=== PATIENT | male | born 1995 | race Caucasian/White ===

== ENCOUNTER 2016-06-08 09:43 | Emergency (ER) | payer OTHER ==
[~2016-06-08] VITALS: Ht 182.9 cm; Wt 78.9 kg
[~2016-06-08 09:43] MED LIST: HYDR-906 PO; IBUP-1542 PO; NO MEDS
[2016-06-08 09:51] VITALS: Ht 182.9 cm; Wt 78.9 kg
[2016-06-08] MEDS ORDERED: KETOROLAC 60 MG INJ IM STA (10:26)
--- NOTE | 2016-06-08 11:09 | RADRPT ---
PROCEDURE: XR Elbow. CLINICAL INDICATION: Trauma, pain, felt a pop TECHNIQUE: 4 views of the left elbow performed. COMPARISON: Radiographs of the left elbow May 14, 2016 FINDINGS: There is an obliquely oriented fracture of the distal humeral shaft with fairly extensive periosteal reaction and some decreased bone mineralization of the humerus with a somewhat moth-eaten appearanc e. Pathologic fracture is not excluded. There is no evidence of fracture of the elbow or significan t elbow joint effusion. IMPRESSION: 1. Minimally displaced obliquely oriented distal humeral shaft fracture as above. Given the exubera nt periosteal reaction and relatively rapid mottled appearance of the bone, cannot exclude pathologi c fracture related to underlying infection or bone lesion. Orthopedic consultation and clinical cor relation is advised. Consider MRI for further evaluation. Findings discussed with REZA RHOADES at 06/08/2016 11:06:35 AM RPTAT: UU .Grayson Gill MD, MD Date Time Electronically viewed and signed by .Grayson Gill MD, on 06/08/2016 11:08 .Ximena/
--- NOTE | 2016-06-08 11:15 | RADRPT ---
PROCEDURE: XR humerous CLINICAL INDICATION: Trauma, pain, felt a pop TECHNIQUE: 2 views of the left elbow performed. COMPARISON: Radiographs of the left elbow May 14, 2016 FINDINGS: There is an obliquely oriented fracture of the distal humeral shaft with fairly extensive periosteal reaction and some decreased bone mineralization of the humerus with a somewhat moth-eaten appearanc e. Pathologic fracture is not excluded. There is no evidence of fracture of the elbow or significan t elbow joint effusion. IMPRESSION: 1. Minimally displaced obliquely oriented distal humeral shaft fracture as above. Given the exubera nt periosteal reaction and relatively rapid mottled appearance of the bone, cannot exclude pathologi c fracture related to underlying infection or bone lesion. Orthopedic consultation and clinical cor relation is advised. Consider MRI for further evaluation. Findings discussed with REZA RHOADES at 06/08/2016 11:06:35 AM RPTAT: UU .Grayson Gill MD, MD Date Time Electronically viewed and signed by .Grayson Gill MD, on 06/08/2016 11:14 .K/
[2016-06-08] MEDS ORDERED: HYDROCODONE/APAP (10/325) TAB PO ONE (11:30)
[2016-06-08] MEDS ORDERED: HYDR-906 PO (12:21)
[2016-06-08] MEDS ORDERED: NAPR-688 PO (12:21)
--- NOTE | 2016-06-20 23:28 | ERD ---
DATE OF SERVICE: 06/08/2016 HISTORY OF PRESENT ILLNESS: This 20-year-old male comes in with his father for left upper arm pain x2 months. Arm pain was exacerbated yesterday when the patient was going over a fence and felt a po p in his arm. He had previously had a knee injury, where he went to the hospital and x-rays were ne gative for any acute fracture, and they said it was likely a ligament or tendon injury. The pain mahmood s increased since he attempted to climb the fence yesterday. He has no other injuries. He is other rosales healthy. REVIEW OF SYSTEMS: A 10-point review of systems negative except as in the HPI. PAST MEDICAL HISTORY: Negative. PAST SURGICAL HISTORY: Negative. FAMILY HISTORY: Noncontributory. No trauma. SOCIAL HISTORY: Does not drink alcohol. Does not use any other drugs currently. Does smoke cigare ttes. DIAGNOSTIC DATA: Humerus x-ray interpretation of the left humerus and left elbow x-ray interpretati on by myself: Midshaft humeral fracture, distal midshaft, with minimal displacement, but a moth-ea ten appearance of the bone, that was not present on prior x-ray. No dislocations. EMERGENCY DEPARTMENT COURSE AND MEDICAL DECISION MAKING: Humeral shaft fracture secondary to trauma . The patient was given [place], as well as Toradol in the emergency room, which helped with his pain . He will be given an orthopedic followup and placed in the splint for his humeral shaft fracture. As far as the moth-eaten appearance on the x-ray showing decreased bone mineralization compared to prior, I did remove a compressive PAVEL wrap to the patient, that was definitely too tight; causing mahmood nd swelling and forearm swelling. The patient unlikely has any new lytic cancer lesions in the last month that have preferentially attacked his left humerus. It is much more likely the patient has b een depriving the tissue of oxygen with the compressive PVAEL stressing. I told him not to use that a nymore unless he makes sure that it is not very tight, and the hand has good circulation. He had a splint application though. Patient's arm was fitted in splint, that the patient had already with hi m. I performed a neurovascular assessment after adjusting the splint for maximum comfort without co mpromising circulation. The patient was neurovascularly and motor intact. I spoke with the father and the patient regarding an orthopedist for orthopedic followup, lindy galeano the findings on his x-ray. They agreed that they will call find an orthopedist for him through [facility] primary care doctor as soon as possible. Discharging with naproxen and [place] for pain. DISCHARGE DIAGNOSES: 1. Closed fracture of the humeral shaft. 2. Bone demineralization. DISPOSITION: To home in stable condition. Dictated By: VERONA DASH Conf#: [id number] DID#: [id number]
== END 2016-06-08 12:50 | disposition home or self-care (01) ==
LOC: FTE 09:43
DX: S42.392A Other fracture of shaft of left humerus, initial encounter for closed fracture (principal); F17.210 Nicotine dependence, cigarettes, uncomplicated; M80.822A Other osteoporosis with current pathological fracture, left humerus, initial encounter for fracture; X50.9XXA Other and unspecified overexertion or strenuous movements or postures, initial encounter; Y92.9 Unspecified place or not applicable; Z79.4 Long term (current) use of insulin
CPT/HCPCS: 73060; 73080; 96372; J1885; Z7502; Z7610

== ENCOUNTER 2016-06-27 15:16 | Emergency (ER) | payer OTHER ==
[~2016-06-27] VITALS: Ht 182.9 cm; Wt 63.5 kg
[~2016-06-27 15:16] MED LIST changes: +NAPR-688 PO
[2016-06-27 15:19] VITALS: Ht 182.9 cm; Wt 63.5 kg
[2016-06-27] MEDS ORDERED: SODIUM CHLORIDE 0.9% 1L BAG IV* STA (16:46)
[2016-06-27] MEDS ORDERED: VANCOMYCIN 1 GM (PMX) 250 ML IVPB STA (16:46)
[2016-06-27] MEDS ORDERED: morphine 4 MG/ML VIAL IV STA ×2 (16:46→20:00)
[2016-06-27] MEDS ORDERED: PIPER-TAZO 3.375 GM IV (PMX) 100 ML IVPB STA (16:46)
[2016-06-27] MEDS ORDERED: CLINDAMYCIN 900 MG/D5W (PMX) 50 ML IVPB STA (16:46)
[2016-06-27] MEDS ORDERED: IBUP-1542 PO (17:03)
--- NOTE | 2016-06-27 17:29 | RADRPT ---
PROCEDURE: XR Humerus 2 Views. CLINICAL INDICATION: Left arm pain, possible osteomyelitis. TECHNIQUE: AP and lateral views of the left humerus were performed. COMPARISON: June 08, 2016 FINDINGS: Obliquely oriented fracture through the mid humeral diaphysis continues to be identified. There has been interval increase in the displacement and retraction of the distal fracture fragment. Scatter ed patchy lucencies, possibly reflecting erosions are identified fracture fragments adjacent to the fracture site. New soft tissue air is seen surrounding the fracture site. Interosseous spaces appe ar unremarkable. IMPRESSION: Continued mid humeral diaphysis fracture with interval increase in displacement and retraction of th e distal fracture fragment. Scattered patchy lucencies, possibly reflecting erosions in the fracture fragments, adjacent to the fracture site. Osteomyelitis is not excluded. If further characterization and evaluation for osteo myelitis is needed CT or MRI could be helpful. New soft tissue air adjacent to the fracture site. Finding could reflect soft tissue infection. RPTAT: AA .Crow Durán MD, MD Date Time Electronically viewed and signed by .Crow Durán MD, on 06/27/2016 17:28 .P/
--- NOTE | 2016-06-27 17:55 | ERA ---
ER Documentation Chief Complaint Date/Time DATE: 06/27/16 TIME: 17:16 Chief Complaint FEVER AND LEFT ARM SWELLING AND REDNESS WITH DRAINAGE LAST NIGHT HPI 20-year-old previously healthy male presenting with left arm pain and redness. He fractured his arm after a fall on June 08 while he was trying to jump over a fence. He felt a pop at that time.. He was seen here, diagnosed with humeral fracture and placed in a sling with instructions to follow-up with an orthopedic. Due to severe pain, he was taken to [facility] and referred to an orthopedist. He saw an orthopedist who referred him for an MRI yesterday. He had the MRI of his left arm which showed a displaced comminuted oblique fracture of the mid humeral diaphysis with a large amount of surrounding fluid and hemorrhage. Per the patient's mother, the orthopedist, Dr Pulido, had concern for possible associated tumor with the fracture and referred the patient to another oncologic orthopedist, Dr. Jacobs. They scheduled an appointment for this orthopedist for July 09. His current orthopedist saw him yesterday after the MRI. Per the patient, his arm was already swollen and red. Since last night he has had new drainage from the back of his arm with an associated "hole" in his arm. He has had associated chills. No nausea, vomiting, abdominal pain. He rates his pain as a 10 out of 10. He denies any associated numbness or tingling in his arm. ROS All systems reviewed and are negative except as per history of present illness. Medications Home Meds Active Scripts Hydrocodone/Acetaminophen ([place] 5-325 Tablet) 1 Each Tablet, 1 EACH PO Q6, #20 TAB Prov:VERONA COBB DO 06/08/16 Reported Medications Ibuprofen* (Ibuprofen*) 600 Mg Tablet, 600 MG PO Q6H Y for PAIN, TAB 06/27/16 Discontinued Reported Medications [No Meds] No Conflict Check 11/08/10 [No Meds] No Conflict Check 04/26/10 Discontinued Scripts Naproxen* (Naproxen*) 500 Mg Tablet, 500 MG PO BID, #20 TAB Prov:VERONA COBB DO 06/08/16 Hydrocodone/Acetaminophen ([place] 5-325 Tablet) 1 Each Tablet, 1 TAB PO Q6H Y for PAIN, #20 TAB Prov:CUISIA,JAMA VEGA [employer]. [employer] 05/14/16 Ibuprofen* (Motrin*) 600 Mg Tab, 600 MG PO Q6H Y for PAIN AND OR ELEVATED TEMP, #30 TAB Prov:JAMA LOYOLA [employer] 05/14/16 Allergies Allergies: Coded Allergies: No Known Drug Allergies (Verified Allergy, Mild, 06/27/16) PMhx/Soc History of Surgery: Yes (ALVIN INGUINAL HERNIA REPAIR) Anesthesia Reaction: No Hx Neurological Disorder: No Hx Respiratory Disorders: No Hx Cardiac Disorders: No Hx Psychiatric Problems: No Hx Miscellaneous Medical Probl: No Hx Alcohol Use: No Hx Substance Use: Yes (Marijuana, history of heroin IV use several months ago) Hx Tobacco Use: Yes (pack day x 5 years) FmHx Family History: No diabetes Physical Exam Vitals Vital Signs Date Time Temp Pulse Resp B/P Pulse Ox O2 Delivery O2 Flow Rate FiO2 06/27/16 18:47 98.5 104 20 107/76 Room Air 06/27/16 18:10 98.7 115 18 107/76 100 Room Air 06/27/16 15:19 101.0 145 22 109/71 98 Physical Exam Const: Ill-appearing, mild distress secondary to pain Head: Atraumatic Eyes: Normal Conjunctiva ENT: Normal External Ears, Nose and Mouth. Neck: Full range of motion..~ No meningismus. Resp: Clear to auscultation bilaterally Cardio: Regular rate and rhythm, no murmurs Abd: Soft, non tender, non distended. Normal bowel sounds Skin: Left arm with induration, swelling, erythema, warmth to touch up to level of mid humerus Back: No midline or flank tenderness Ext: Upper Extremity - bilateral: Skin: Draining abscess with purulent bloody drainage in the posterior upper left arm at the level of the mid humerus with associated 2 cm opening and surrounding fluctuance with induration Compartments: Soft, edema present, no crepitus to palpation Motor: Limited active range of motion shoulder/elbow/wrist /hand secondary to pain. Able to move all fingers Sensation: Decreased sensation in the left hand, normal sensation in the rest of the arm Bones: Tenderness palpation over the humerus distally, otherwise forearm, wrist, shoulder and hand nontender Snuffbox: Nontender Pulses/Perfusion: 2+ radial, Capillary refill < 2 seconds Neur: Awake and alert and oriented 3 Psych: Normal Mood and Affect Result Diagram: 06/27/16 1745 06/27/16 1646 Results 24 hrs Laboratory Tests Test 06/27/16 16:46 06/27/16 17:40 06/27/16 17:45 Alanine Aminotransferase (ALT/SGPT) 32IU/L Albumin 3.2g/dl Albumin/Globulin Ratio 0.80 Alkaline Phosphatase 148IU/L Anion Gap 19 Aspartate Amino Transf (AST/SGOT) 12IU/L Blood Urea Nitrogen 11mg/dl Calcium Level 9.6mg/dl Carbon Dioxide Level 25mmol/L Chloride Level 97mmol/L Creatinine 0.60mg/dl Direct Bilirubin 0.00mg/dl Globulin 4.00g/dl Glucose Level 104mg/dl Indirect Bilirubin 0.0mg/dl Potassium Level 4.0mmol/L Sodium Level 137mmol/L Total Bilirubin 0.0mg/dl Total Protein 7.2g/dl Lactic Acid Level 1.5mmol/L Activated Partial Thromboplast Time 35.5Sec Basophils # 0.110^3/ul Basophils % 0.5% Blood Morphology Comment Eosinophils # 0.210^3/ul Eosinophils % 0.8% Hematocrit 31.9% Hemoglobin 10.5g/dl INR International Normalized Ratio 1.28 Lymphocytes # 3.910^3/ul Lymphocytes % 18.4% Mean Corpuscular Hemoglobin 27.9pg Mean Corpuscular Hemoglobin Concent 32.9g/dl Mean Corpuscular Volume 84.7fl Mean Platelet Volume 7.6fl Monocytes # 1.710^3/ul Monocytes % 8.0% Neutrophils # 15.110^3/ul Neutrophils % 72.3% Nucleated Red Blood Cells # 0.010^3/ul Nucleated Red Blood Cells % 0.0/100WBC Platelet Count 17382^3/UL Prothrombin Time 16.1Sec Prothrombin Time Ratio 1.3 Red Blood Count 3.7610^6/ul Red Cell Distribution Width 15.8% White Blood Count 20.910^3/ul Current Medications Medications (Trade) Dose Ordered Sig/Taz Route PRN Reason Start Time Stop Time Status Last Admin Dose Admin Sodium Chloride 1970 ml 1,970 ml BOLUS OVER 2 HOURS STAT IV* 06/27/16 16:46 06/27/16 16:48 DC 06/27/16 17:59 Vancomycin HCl 250 ml @ 125 mls/hr ONCE STAT IVPB 06/27/16 16:46 06/27/16 18:45 DC 06/27/16 19:18 Clindamycin HCl/ Dextrose 50 ml @ 50 mls/hr ONCE STAT IVPB 06/27/16 16:46 06/27/16 17:45 DC 06/27/16 18:45 Piperacillin Sod/ Tazobactam Sod (Zosyn 3.375gm/ 100 ml (Pmx)) 100 ml @ 100 mls/hr ONCE STAT IVPB 06/27/16 16:46 06/27/16 17:45 DC 06/27/16 17:59 Morphine Sulfate (morphine) 4 mg ONCE STAT IV 06/27/16 16:46 06/27/16 16:48 DC 06/27/16 17:59 Procedures/MDM Patient is presenting with left upper extremity cellulitis with associated draining abscess with underlying nonhealing left midshaft comminuted humeral fracture. I have a low suspicion for necrotizing fasciitis however I have a concern for osteomyelitis. Blood cultures were sent. IV fluids and IV antibiotics were started. He was placed on IV vancomycin, clindamycin, and Zosyn. Patient's infectious symptoms have not stabilized and the patient is at risk of rapid decompensation. The patient will need admission for careful hydration, antibiotic therapy, and infectious source control. I suspect he is going to require surgery, however the orthopedic surgeons here do not feel comfortable doing surgery on this patient given he may have a underlying tumor. I spoke with the orthopedist on-call, Dr. Caba. He stated that any orthopedic general surgeon will not touch this patient given the concern for pathologic fracture and associated tumor. I called the patient's own orthopedist, , who stated that he referred the patient to a tumor specialist and did not feel comfortable doing surgery on this patient's arm. Given the fact that the patient now has an associated infection with his likely pathologic fracture, he recommended I transfer the patient to [facility] or [facility] for higher level of care where they have an oncologic orthopedic surgeon. I feel this patient may need surgical debridement due to his overlying infection and feel he would most benefit from transfer. 20:05 I called [facility] who going to contact with [facility]. The patient was accepted by Dr. Yuan for transfer to their ER. Patient is stable for transfer to [facility] for higher level of care. Departure Diagnosis: Primary Impression: Cellulitis of left upper extremity Additional Impressions: Comminuted left humeral fracture with nonunion Abscess of left upper extremity Condition: Serious ROB SIMS MD Jun 27, 2016 17:27
[2016-06-27 18:34] LABS: ALBUMIN 3.2 g/dl (3.3-4.9)
[2016-06-27 18:37] LABS: ALBUMIN/GLOBULIN RATIO 0.8; CREATININE 0.6 mg/dl (0.61-1.24); TOTAL PROTEIN 7.2 g/dl (6.1-8.1)
[2016-06-27 18:37] LABS: INR 1.28; PROTIME 16.1 Sec (12.2-14.2); PT RATIO 1.3
[2016-06-27 18:38] LABS: PARTIAL THROMBOPLASTIN TIME 35.5 Sec (25.0-35.0)
[2016-06-27 18:38] LABS: CALCIUM 9.6 mg/dl (8.4-10.2)
[2016-06-27 18:39] LABS: BASOPHIL # 0.1 10^3/ul (0.0-0.1); BASOPHILS % 0.5 % (0.0-2.0); EOSINOPHILS # 0.2 10^3/ul (0.0-0.5); EOSINOPHILS % 0.8 % (0.0-7.0); HEMATOCRIT 31.9 % (42.0-52.0); HEMOGLOBIN 10.5 g/dl (14.0-18.0); LYMPHOCYTES # 3.9 10^3/ul (0.8-2.9); LYMPHOCYTES % 18.4 % (18.0-55.0); MEAN CORPUSCULAR HEMOGLOBIN 27.9 pg (29.0-33.0); MEAN CORPUSCULAR HGB CONC 32.9 g/dl (32.0-37.0); MEAN CORPUSCULAR VOLUME 84.7 fl (72.0-104.0); MEAN PLATELET VOLUME 7.6 fl (7.4-10.4); MONOCYTE # 1.7 10^3/ul (0.3-0.9); NEUTROPHIL # 15.1 10^3/ul (1.6-7.5); NEUTROPHILS % 72.3 % (30.0-74.0); PLATELET COUNT 911 10^3/UL (140-440); RED BLOOD COUNT 3.76 10^6/ul (4.70-6.10); RED CELL DISTRIBUTION WIDTH 15.8 % (11.5-14.5); UNCORRECTED WBC 20.9 10^3/ul (4.8-10.8); WHITE BLOOD COUNT 20.9 10^3/ul (4.8-10.8)
[2016-06-27 18:43] LABS: CONDITION 1; LH ANALYZER COMMENTS 1
[2016-06-27 18:47] VITALS: BP 107/76; PULSE 104; RESP 20; TEMP 98.5
== END 2016-06-27 20:39 | disposition short-term general hospital (02) ==
LOC: E/R 15:16
DX: L03.114 Cellulitis of left upper limb (principal); S42.351K Displaced comminuted fracture of shaft of humerus, right arm, subsequent encounter for fracture with nonunion; L02.414 Cutaneous abscess of left upper limb; F17.210 Nicotine dependence, cigarettes, uncomplicated; X50.9XXD Other and unspecified overexertion or strenuous movements or postures, subsequent encounter
CPT/HCPCS: 73060; 80053; 83605; 85025; 85610; 85730; 86850; 86900; 86901; 87040; J2270; J2543; J3370; J7030; Z7610; 36415; 96374; 96375; 96376

== ENCOUNTER 2016-07-01 11:47 | Inpatient (IN) | payer OTHER ==
[~2016-07-01] VITALS: Ht 182.9 cm; Wt 61.4 kg
[~2016-07-01 11:47] MED LIST changes: -NAPR-688 PO; -NO MEDS
[2016-07-01 16:30] VITALS: BP 101/60; PULSE 97; RESP 20
[2016-07-01] MEDS ORDERED: HYDROCODONE/APAP (10/325) TAB PO PRN (18:00)
[2016-07-01] MEDS ORDERED: ONDANSETRON 4 MG INJ IV PRN (18:00)
[2016-07-01] MEDS ORDERED: DIPHENHYDRAMINE 25 MG CAP PO PRN (18:00)
[2016-07-01] MEDS ORDERED: DOCUSATE SODIUM 100 MG CAP PO PRN (18:00)
[2016-07-01] MEDS ORDERED: HYDROCODONE/APAP (5/325) TAB PO PRN (18:00)
[2016-07-01] MEDS ORDERED: HYDROmorphONE 1 MG/ML SYG IV PRN (18:00)
[2016-07-01] MEDS ORDERED: VANCOMYCIN IV PER PHARMACY XX SCH (18:00)
[2016-07-01] MEDS ORDERED: LACTATED RINGER'S 1,000 ML IV SCH (18:00)
--- NOTE | 2016-07-01 18:25 | CONS ---
Date/Time of Note Date/Time of Note DATE: 07/01/16 TIME: 18:25 Consultation Date/Type/Reason Admit Date/Time Jul 01, 2016 at 16:21 Initial Consult Date Exam/Review of Systems Vital Signs Vitals Vital Signs Date Time Temp Pulse Resp B/P Pulse Ox O2 Delivery O2 Flow Rate FiO2 07/01/16 16:30 98.4 97 20 101/60 94 Medications Medications Current Medications Lactated Ringer's (Lr) 1,000 ml @ 100 mls/hr Q10H IV ; Start 07/01/16 at 18:00 Diphenhydramine HCl (Benadryl) 25 mg HS PRN PO SLEEP; Start 07/01/16 at 18:00 Hydromorphone HCl (Dilaudid) 0.5 mg Q4H PRN IV PAIN; Start 07/01/16 at 18:00 Enoxaparin Sodium (Lovenox) 30 mg DAILY SC ; Start 07/02/16 at 09:00 Docusate Sodium (Colace) 100 mg BID PO ; Start 07/01/16 at 21:00 Ondansetron HCl (Zofran Inj) 4 mg Q8 PRN IV NAUSEA AND/OR VOMITING; Start at 18:00 Docusate Sodium (Colace) 50 mg BID PRN PO CONSTIPATION; Start 07/01/16 at 18:00 Acetaminophen/ Hydrocodone Bitart ([place] (10/325)) 1 tab Q6 PRN PO PAIN LEVEL 7 -10; Start 07/01/16 at 18:00 Acetaminophen/ Hydrocodone Bitart ([place] (5/325)) 1 tab Q6H PRN PO PAIN LEVEL 4 -6; Start 07/01/16 at 18:00 ROMMEL SEVERINO MD Jul 01, 2016 18:25
--- NOTE | 2016-07-01 18:25 | QN ---
Documentation Comment [id number] ROMMEL SEVERINO MD Jul 01, 2016 18:25
--- NOTE | 2016-07-01 18:48 | RADRPT ---
PROCEDURE: XR left shoulder. CLINICAL INDICATION: Pain TECHNIQUE: AP, Internal and external rotation views of the left shoulder were performed. COMPARISON: 06/27/2016 FINDINGS: There is partially visualized air in the subcutaneous soft tissues of the left mid arm. There are p atchy lucencies seen in the left proximal and mid humerus, suspicious for possible osteomyelitis. The previously seen humerus fracture is not included in the submitted images. RPTAT: AA IMPRESSION: Partially visualized air in the subcutaneous soft tissues of the left mid arm, suspicious for an abs cess. Ill-defined lucencies in the humerus are partially visualized, suspicious for osteomyelitis. Further evaluation with MRI is recommended. The previously seen humerus fracture is not included in the submitted images. .Vu Lazaro MD, MD Date Time Electronically viewed and signed by .Vu Lazaro MD, on 07/01/2016 18:48 .S/
--- NOTE | 2016-07-01 19:35 | HP ---
DATE OF ADMISSION: 07/01/2016 HISTORY OF PRESENT ILLNESS: The patient was transferred from [facility] with diagnosis of left humerus fracture. The patient has history of fall. The patient tried to jump over a concrete wall on the left, felt it pop and immediate pain in the left upper arm, was taken to [facility]. The patient was diagnosed with pathological fracture, shaft fracture, was , and the patient is being treated for left humeral shaft fracture with draining abscess. 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 The patient also noted to have fracture _ pathologic lesion of his left humerus with associated infection, abscess. The patient was transferred for further management here. The patient has left _ cavitary defect per current record. The patient will need antibiotic, pain control. The patient's WBC 20.7, hematocrit 32.1. Sodium 130, potassium 4.5 from the transferring hospital. The patient is denying any nausea, vomiting; complaining of pain. PAST MEDICAL HISTORY: IVDA; left upper extremity fracture; abscess, status post I and D on 06/29/2016. ALLERGY HISTORY: NEGATIVE. FAMILY HISTORY: Negative. SOCIAL HISTORY: Negative. MEDICATION HISTORY: The patient is currently on: 1. Lovenox. 2. Docusate sodium. 3. Lactated Ringer's. 4. Dilaudid. 5. Vancomycin. 6. Hydrocodone. REVIEW OF SYSTEMS HEENT: Unremarkable. RESPIRATORY: Unremarkable. CARDIOVASCULAR: Unremarkable. ABDOMEN: Unremarkable. EXTREMITIES: Unremarkable except as mentioned above. CENTRAL NERVOUS SYSTEM: Unremarkable. PHYSICAL EXAMINATION: GENERAL: The patient is awake, alert. VITAL SIGNS: Stable. HEAD: Atraumatic, normocephalic. EYES: Pupils equal, reactive to light. NECK: Supple. No JVD. LUNGS: Clear. CARDIOVASCULAR: S1, S2 normal. ABDOMEN: Soft, nontender. Bowel sounds present. No palpable mass. EXTREMITIES. The patient has no cyanosis, clubbing, edema. The patient's left arm has dressing on. No active discharge noted. LABORATORY: No laboratory data from this admission. IMPRESSION: 1. Left humerus fracture. 2. Abscess. 3. Status post incision and drainage. 4. Leukocytosis. 5. Anemia. 6. The patient has incomplete database. PLAN: Continue antibiotic. ID consultation, orthopedic consultation. X-ray will be repeated. Orders were done. Dictated By: ROMMEL MCGOVERN/MARILYNN Conf#: [id number] DID#: [id number] MTDD
[2016-07-01] MEDS ORDERED: VANCOMYCIN 1 GM in NS 250 ML IVPB SCH (20:00)
[2016-07-01] MEDS ORDERED: DOCUSATE SODIUM 100 MG CAP PO SCH (21:00)
[2016-07-01] MEDS ORDERED: VANCOMYCIN 1 GM in SOD CHLORIDE 0.9% 250 ML IVPB SCH (21:00)
[2016-07-02] MEDS ORDERED: ENOXAPARIN 30 MG/0.3 ML SYG SC SCH (09:00)
--- NOTE | 2016-07-03 21:11 | QN ---
Documentation Comment [id number] ROMMEL SEVERINO MD Jul 03, 2016 21:11
--- NOTE | 2016-07-04 07:45 | DS ---
DATE OF ADMISSION: 07/01/2016 DATE OF DISCHARGE: 07/01/2016 The patient has left arm abscess. The patient presented to this hospital. and left ama same time. Dictated By: ROMMEL SEVERINO MD BS/NTS Conf#: [id number] DID#: [id number] MTDD
== END 2016-07-01 19:18 | disposition left against medical advice (07) | DRG 540 ==
LOC: MS2 16:21
PROVIDERS: ADMIT Internal Medicine Nephrology; ATTEND Internal Medicine Nephrology
DX: M86.8X2 Other osteomyelitis, upper arm (principal); M84.422A Pathological fracture, left humerus, initial encounter for fracture; L02.414 Cutaneous abscess of left upper limb; F19.10 Other psychoactive substance abuse, uncomplicated; D72.829 Elevated white blood cell count, unspecified; D64.9 Anemia, unspecified
CPT/HCPCS: 73030; J1170; J7120